=== PATIENT | male | born 1960 | race Caucasian/White ===

== ENCOUNTER 2023-05-11 11:01 | Day surgery (SDC) | payer OTHER ==
[2023-05-11] MEDS: LACTATED RINGERS 1,000 ML IV ONE (11:13)
--- NOTE | 2023-05-11 11:56 | ANESTHESIA ---
Pre-Anesthesia VS, & Labs - Diagnosis screening - Procedure colonoscopy Vital Signs: Temp Pulse Resp BP Pulse Ox O2 Flow Rate 36.4 C L 61 18 139/77 H 97 05/11/23 11:22 05/11/23 11:22 05/11/23 11:22 05/11/23 11:22 05/11/23 11:22 Height: 5 ft 11 in Weight (kg): 97.4 kg Body Mass Index: 29.9 BMI Classification: Overweight - NPO Other (prep as directed) Home Medications and Allergies Home Medications: Ambulatory Orders Losartan/Hydrochlorothiazide [Hyzaar 100-25 Tablet] 1 each PO DAILY 05/08/23 fluorouraciL [Fluorouracil] TOP 05/08/23 Levothyroxine Sodium 137 mcg PO DAILY 11/21/22 Rosuvastatin Calcium [Crestor] 10 mg PO DAILY 11/21/22 amLODIPine [Norvasc] 5 mg PO DAILY 11/21/22 Losartan/Hydrochlorothiazide [Hyzaar 100-25 Tablet] 1 each PO DAILY 05/08/23 fluorouraciL [Fluorouracil] TOP 05/08/23 Allergies/Adverse Reactions: Allergies Allergy/AdvReac Type Severity Reaction Status Date / Time No Known Drug Allergies Allergy Verified 11/21/22 16:37 Anes History & Medical History - Anesthetic History Anesthesia Complications: reports: No previous complications - Medical History Cardiovascular: reports: Hypertension, High cholesterol Pulmonary: reports: Other Gastrointestinal: reports: None Urinary: reports: None Musculoskeletal: reports: Osteoarthritis Endocrine/Autoimmune: reports: HyPOthyroidism Skin: reports: Other - Surgical History General: reports: Appendectomy, Colonoscopy Orthopedic: reports: Knee replacement Dermatologic: reports: Other Exam General: Alert, Oriented x3 Dental: WNL Mouth Opening: Greater than 4 Fingerbreadths Neck Mobility: Normal Mallampati classification: II Thyromental Distance: greater than 6 cm Respiratory: Lungs clear Cardiovascular: Regular rate Plan Anesthesia Type: Total IV Consent for Procedure(s) Verified and Reviewed: Yes Code Status: Attempt Resuscitation ASA classification: 2-Mild systemic disease Is this case an emergency?: No
[2023-05-11] MEDS: LACTATED RINGERS 500 ML IV ONE (12:36)
[2023-05-11 13:12] VITALS: BP 117/82; O2SAT 96
--- NOTE | 2023-05-12 07:10 | ANESTHESIA POST OP EVALUATION ---
Anesthesia Post Eval - Post Anesthesia Eval Vitals: Last Vital Signs Temp 36.3 C L 05/11/23 13:05 Pulse 62 05/11/23 13:05 Resp 18 05/11/23 13:05 BP 117/82 H 05/11/23 13:05 Pulse Ox 96 05/11/23 13:05 O2 Flow Rate CV Function Including HR & BP: Stable Pain Control: Satisfactory Nausea & Vomiting: Negative Mental Status: Baseline Respiratory Status: Airway Patent Hydration Status: Satisfactory Anesthesia Complications: None
== END 2023-05-11 11:02 | disposition home or self-care (01) ==
LOC: SDS 11:01
PROVIDERS: ATTEND Surgery
DX: Z12.11 Encounter for screening for malignant neoplasm of colon (principal); K57.30 Diverticulosis of large intestine without perforation or abscess without bleeding; K64.1 Second degree hemorrhoids; E66.9 Obesity, unspecified; I10 Essential (primary) hypertension; C85.90 Non-Hodgkin lymphoma, unspecified, unspecified site; Z68.31 Body mass index [BMI] 31.0-31.9, adult
CPT/HCPCS: 45378; J7120